=== PATIENT | female | born 1990 | race American Indian/Alaskan Native ===

== ENCOUNTER 2019-10-26 13:45 | Outpatient (CLI) | payer MEDICAID ==
[2019-10-26 14:49] VITALS: BP 117/66
[2019-10-26] MEDS ORDERED: LACTATED RINGERS 1000 ML IV SOLN ONE (14:55)
[2019-10-26] MEDS ORDERED: LACTATED RINGERS 1,000 ML IV ONE (14:55)
[2019-10-26 15:22] LABS: Bilirubin,Urine NEG (Negative); Blood,Urine NEG (Negative); Color,Urine Yellow (Yellow); Mucus,Urine FEW /HPF; Protein,Urine <15 mg/dL mg/dL (Negative); Urobilinogen,Urine < 2.0 mg/dL (<2.0)
== END 2019-10-26 17:19 | disposition home or self-care (01) ==
LOC: TRG 13:45 → APU 13:47 → TRG 17:19
PROVIDERS: ATTEND Obstetrics & Gynecology
DX: O62.9 Abnormality of forces of labor, unspecified (principal); Z3A.37 37 weeks gestation of pregnancy
CPT/HCPCS: 59025; 81001; 96360; J7120

== ENCOUNTER 2019-11-03 20:27 | Inpatient (IN) | payer MEDICAID ==
[2019-11-03] MEDS ORDERED: LACTATED RINGERS 1,000 ML ONE (21:12)
[2019-11-03] MEDS ORDERED: LACTATED RINGERS 1,000 ML IV ONE (21:27)
[2019-11-03 21:50] LABS: Basophils # (Auto) 0.1 K/mm3 (0.0-0.1); Basophils % (Auto) 0.8 % (0.0-1.8); Eosinophils % (Auto) 0.1 % (0.0-4.3); Hemoglobin 9.8 gm/dl (10.1-14.3); Lymphocytes # (Auto) 1.7 K/mm3 (1.2-5.4); Lymphocytes % (Auto) 16.3 % (13.4-35.0); Mean Corpuscular HGB Conc 34 % (30-34); Mean Corpuscular Volume 74 fl (79-97); Monocytes # (Auto) 0.8 K/mm3 (0.0-0.8); Monocytes % (Auto) 7.5 % (0.0-7.3); Platelet Count 270 K/mm3 (140-440); Red Blood Count 3.93 M/mm3 (3.65-5.03); Red Cell Distribution Width 19.2 % (13.2-15.2)
[2019-11-03 22:02] LABS: Bacteria,Urine 1+ /HPF (Negative); Bilirubin,Urine NEG (Negative); Blood,Urine LG (Negative); Color,Urine Yellow (Yellow); Mucus,Urine FEW /HPF; Protein,Urine <15 mg/dL mg/dL (Negative); Urobilinogen,Urine < 2.0 mg/dL (<2.0)
[2019-11-03] MEDS ORDERED: AMPICILLIN/NS 2 GM/100 ML 2 GM/100 ML BAG IV ONE (22:42)
[2019-11-04] MEDS ORDERED: oxyCODONE /ACETAMINOPHEN 5-325MG TAB PO PRN (00:23)
[2019-11-04] MEDS ORDERED: AMPICILLIN/NS 1 GM/50 ML 1 GM/50 ML BAG IV SCH (02:00)
--- NOTE | 2019-11-04 02:23 | Anesthesia Consultation ---
Anesthesia Consult and Med Hx Date of service: 11/04/19 - Airway Anesthetic Teeth Evaluation: Good ROM Head & Neck: Adequate Mental/Hyoid Distance: Adequate Mallampati Class: Class II Intubation Access Assessment: Probably Good - Pulmonary Exam CTA: Yes - Cardiac Exam Cardiac Exam: RRR - Pre-Operative Health Status ASA Pre-Surgery Classification: ASA2 Proposed Anesthetic Plan: Spinal - Pulmonary Hx Asthma: No - Cardiovascular System Hx Hypertension: No - Central Nervous System Hx Seizures: No Hx Psychiatric Problems: No - Endocrine Hx Renal Disease: No Hx Hypothyroidism: No Hx Hyperthyroidism: No - Hematic Hx Anemia: No Hx Sickle Cell Disease: No - Other Systems Hx Alcohol Use: No
--- NOTE | 2019-11-04 02:23 | Anesthesia Day of Surgery ---
Anesthesia Day of Surgery - Day of Surgery Patient Examined: Yes Patient H&P Reviewed: Yes Patient is NPO: Yes
[2019-11-04] MEDS ORDERED: METOCLOPRAMIDE 10 MG/2 ML INJ ONE (02:41)
[2019-11-04] MEDS ORDERED: BICITRA ORAL LIQD 30ML ONE (02:41)
[2019-11-04] MEDS ORDERED: FAMOTIDINE 20 MG/2 ML INJ IV ONE (02:41)
[2019-11-04] MEDS ORDERED: OXYTOCIN 20 UNIT/1000ML DRIP 40,000 MILLIUNITS/2,000 ML BAG IV ONE (02:41)
--- NOTE | 2019-11-04 02:50 | History and Physical Report ---
History of Present Illness Date of examination: 11/04/19 Date of admission: 11/04/2019 Chief complaint: labor at term History of present illness: JARAD 11/16/2019. Previous . Past History Past Surgical History: section - Obstetrical History Expected Date of Delivery: 11/16/19 Actual Gestation: 38 Week(s) 2 Day(s) : 5 Medications and Allergies Allergies Allergy/AdvReac Type Severity Reaction Status Date / Time No Known Allergies Allergy Unverified 09/08/14 02:11 Home Medications Medication Instructions Recorded Confirmed Last Taken Type Ondansetron [Zofran Odt] 4 mg PO Q6H #30 tab.rapdis 09/08/14 Unknown Rx Vit-Fe Fumar-FA [ 1 each PO QDAY #30 tablet 09/08/14 Unknown Rx Vitamin] Active Meds: Active Medications Ampicillin Sodium (Ampicillin/Ns 1 Gm/50 Ml) 1 gm in 50 mls @ 100 mls/hr IV Q4HR BRAD; Protocol Cefazolin Sodium (Ancef/Sterile Water 2 Gm/20 Ml) 2 gm in 20 mls @ 100 mls/hr IV ONCE ONE Stop: 11/04/19 03:11 Oxycodone/Acetaminophen (Percocet 5/325) 2 tab PO Q6H PRN PRN Reason: Pain, Moderate (4-6) Last Admin: 11/04/19 00:44 Dose: 2 tab Documented by: Review of Systems All systems: negative - Vital Signs Vital signs: Vital Signs Pulse BP 94 H 133/76 11/03/19 20:44 11/03/19 20:44 Temp Pulse Resp BP Pulse Ox 98.3 F 86 16 123/77 11/04/19 00:51 11/04/19 00:51 11/04/19 00:51 11/04/19 00:51 - Physical Exam Lungs: Positive: Normal air movement Abdomen: Positive: distention. Negative: tenderness, guarding - Obstetrical FHR: auscultation normal Uterine Contraction Monitor Mode: Palpation Results Result Diagrams: 11/03/19 21:20 Abnormal lab results 11/03/19 11/03/19 Range/Units 21:20 21:20 Hgb 9.8 L (10.1-14.3) gm/dl Hct 29.0 L (30.3-42.9) % MCV 74 L (79-97) fl MCH 25 L (28-32) pg RDW 19.2 H (13.2-15.2) % Millard % (Auto) 7.5 H (0.0-7.3) % Seg Neutrophils % 75.3 H (40.0-70.0) % Seg Neutrophils # 8.0 H (1.8-7.7) K/mm3 Urine WBC (Auto) 32.0 H (0.0-6.0) /HPF All other labs normal. Assessment and Plan - Patient Problems (1) Previous delivery affecting , antepartum Current Visit: Yes Status: Acute (2) Active labor at term Current Visit: Yes Status: Acute Plan to address problem: Informed consent was given by patient for a repeat . vs cesrean discussed.
[2019-11-04] MEDS ORDERED: ceFAZolin/Water 2 GM/20 ML 2 GM/20 ML SYRINGE IV ONE (03:00)
[2019-11-04] MEDS ORDERED: SODIUM CHLORIDE 0.9% IRR 1,000 ML BOTTLE IR ONE (03:18)
[2019-11-04] MEDS ORDERED: PHENYLEPHRINE/NS 1,000 MCG/10 ML SYRINGE (OR USE) IV ONE (03:24)
[2019-11-04] MEDS ORDERED: DEXMEDETOMIDINE 200 MCG/2 ML VIAL IV ONE (03:24)
[2019-11-04] MEDS ORDERED: KETOROLAC 30 MG/1 ML INJ ONE (03:24)
[2019-11-04] MEDS ORDERED: BUPIVACAINE /DEX-WATER 0.75% (2 ML) AMPULE INFILTRATI ONE (03:24)
[2019-11-04] MEDS ORDERED: LANOLIN/ZINC/DIMETHICONE (LANSINOH) 7 GM TP PRN (03:51)
[2019-11-04] MEDS ORDERED: ONDANSETRON 4 MG/2 ML INJ IV PRN (03:51)
[2019-11-04] MEDS ORDERED: ACETAMINOPHEN 325 MG TAB PO PRN (03:51)
[2019-11-04] MEDS ORDERED: WITCH HAZEL/ GLYCERIN PAD TP PRN (03:51)
[2019-11-04] MEDS ORDERED: NALOXONE 0.4 MG/1 ML INJ IV PRN (03:51)
--- NOTE | 2019-11-04 03:56 | Operative Report ---
Operative Report Operative Report: Date of surgery: November 04, 2019 Preoperative diagnoses: Term , previous section, active labor Postoperative diagnoses: The same. Operation: Lower segment transverse delivery Surgeon:Christiane Neff MD Reverser: Manuel Lamas CRNA Anesthesia: Spinal block Estimated blood loss:500 mL Complications: None Findings: There was a live baby girl in vertex within a very thick olive green meconium stained amniotic fluid. weight 7 pounds 2 ounces with Apgars 8/9. The ovaries, fallopian tubes and the uterus were grossly normal. The bowels seen through the Pfannenstiel incision as well as the greater omentum were all palpably and grossly normal. There were no adhesions within the operative field. Procedure in detail: The patient was taken to the operating room and given a spinal block. Patient was placed in the straight supine position and a Boyd catheter was inserted. The patient was prepped in the abdomen. The drapes were placed. A timeout was done. With the go ahead from the administrative assistant receptionist, a Pfannenstiel incision was made. This incision was carried across the subcutaneous layer to the fascia which was also divided transversely. The recti abdominis muscle flaps were stripped from the fascia using a combination of blunt and sharp dissections. The muscles were in the midline to gain access to the anterior parietal peritoneum which was divided after excluding any underlying viscera. The access to the peritoneal cavity was then widened by manual stretching. The bladder blade was applied. The utero vesicle peritoneal flap was divided transversely allowing the bladder to be displaced caudally. The uterine incision was placed in the lower segment transversely. The uterine incision was carried to the decidual layer. The uterine incision was extended on both sides using the bandage scissors. The amniotic sac was ruptured with clear fluid. The head was lifted out of the false maternal pelvis and delivered through the incision using fundal pressure. The airways were bulb suctioned beginning with the mouth. Continuing fundal pressure combined with traction on the mandibular processes of the jaw delivered the rest of the baby. The umbilical cord was double clamped and divided. The baby was carefully transferred to the pediatric team. The placenta was manually removed from the uterine cavity. The uterine cavity was explored and was empty of any placental remnants. The uterine incision was repaired in 2 layers with #1 Vicryl. The surgical line on the uterus was hemostatic. Blood and clots were cleared from the peritoneal cavity. The anterior parietal peritoneum was repaired with #1 Vicryl. The fascia was repaired with #1 Vicryl. The subcutaneous layer was made hemostatic using the Bovie before the skin was closed subcuticularly with 4-0 Vicryl. There were no complications. The estimated blood loss was 500 mL. All sponges and instrument counts were correct. Patient was safely transferred to the recovery room.
[2019-11-04] MEDS ORDERED: OXYTOCIN 20 UNIT/1000ML DRIP 20 UNITS/1,000 ML BAG IV SCH (04:00)
--- NOTE | 2019-11-04 04:11 | Post Anesthesia Evaluation ---
- Post Anesthesia Evaluation Patient Participated: Yes Airway Patent: Yes Stable Respiratory Function: Yes Nausea/Vomiting: No Temp > 96.8F: Yes Pain Manageable: Yes Adequeate Hydration: Yes Anesthesia Complications: No Block Receding Appropriately: Yes
[2019-11-04] MEDS: MORPHINE 4 MG/1 ML INJ IV PRN ×3 (06:55→17:11)
[2019-11-04] MEDS: FERROUS SULFATE 325 MG TAB PO SCH (09:22)
[2019-11-04] MEDS: PRENATAL VIT27-FE FUMARATE-FOLIC ACID VIT TAB PO SCH (09:22)
[2019-11-04] MEDS: KETOROLAC 30 MG/1 ML INJ IV PRN (09:22)
[2019-11-04] MEDS: ceFAZolin/NS 1 GM/50 ML 1 GM/50 ML BAG IV SCH ×2 (11:49→20:12)
[2019-11-04] MEDS ORDERED: SODIUM CHLORIDE 0.9% 1000 ML 1,000 ML ONE (13:47)
[2019-11-04] MEDS: HYDROcodone/ACETAMINOPHEN 5-325 MG TAB PO PRN ×2 (14:14→20:08)
[2019-11-04 15:48] LABS: Hematocrit 28.4 % (30.3-42.9); Hemoglobin 9.4 gm/dl (10.1-14.3)
[2019-11-05] MEDS: KETOROLAC 30 MG/1 ML INJ IV PRN (00:10)
--- NOTE | 2019-11-05 08:00 | Progress Note ---
Assessment and Plan A: POD #1 Asymptomatic Anemia P: Follow Routine PostOp Orders Continue PO FeSO4 Subjective - Subjective Date of service: 11/05/19 Patient reports: appetite normal, voiding normally, pain well controlled, flatus, ambulating normally Ulman: doing well, bottle feeding Objective - Vital Signs Latest vital signs: Vital Signs Temp Pulse Resp BP BP Pulse Ox 11/05/19 00:10 18 11/05/19 00:00 98.6 F 70 16 121/70 11/04/19 20:08 18 11/04/19 19:30 98.6 F 77 16 134/77 11/04/19 17:11 20 11/04/19 15:46 98.4 F 93 H 18 125/72 96 11/04/19 14:14 20 11/04/19 10:44 18 11/04/19 09:22 20 11/04/19 09:04 97.9 F 95 H 18 123/76 98 Intake and Output 11/04/19 11/05/19 11/05/19 22:59 06:59 14:59 Intake Total 780 Output Total 950 700 Balance -170 -700 Intake: Oral 240 Intake, Free Water 540 Output: Urine 950 700 Indwelling Catheter 300 Void 650 700 Other: Total, Intake Amount 120 Total, Output Amount 400 700 # Voids Void 1 1 - Exam Breasts: Present: normal Cardiovascular: Present: Regular rate Lungs: Present: Clear to auscultation, Normal air movement Abdomen: Present: normal appearance, soft, normal bowel sounds Uterus: Present: normal, firm, fundal height below umbilicus Extremities: Present: normal Incision: Present: dry, dressed - Labs Labs: Abnormal lab results 11/04/19 Range/Units 15:10 Hgb 9.4 L (10.1-14.3) gm/dl Hct 28.4 L (30.3-42.9) %
[2019-11-05] MEDS: HYDROcodone/ACETAMINOPHEN 5-325 MG TAB PO PRN ×3 (08:05→23:40)
[2019-11-05] MEDS: IBUPROFEN 800 MG TAB PO PRN ×2 (10:38→21:03)
[2019-11-05] MEDS: FERROUS SULFATE 325 MG TAB PO SCH (10:38)
[2019-11-05] MEDS: PRENATAL VIT27-FE FUMARATE-FOLIC ACID VIT TAB PO SCH (10:38)
[2019-11-05] MEDS ORDERED: BENZOCAINE/MENTHOL 20/0.5% TOP SPRAY 56 GM TP PRN (22:10)
[2019-11-06 09:03] VITALS: BP 118/79
[2019-11-06] MEDS: HYDROcodone/ACETAMINOPHEN 5-325 MG TAB PO PRN (09:29)
[2019-11-06] MEDS: FERROUS SULFATE 325 MG TAB PO SCH (09:29)
[2019-11-06] MEDS: PRENATAL VIT27-FE FUMARATE-FOLIC ACID VIT TAB PO SCH (09:29)
--- NOTE | 2019-11-06 10:47 | Discharge Summary ---
Providers - Providers Date of Admission: 11/04/19 03:45 Date of discharge: 11/06/19 (1200) Attending physician: SHELLEY VALLADARES MD Primary care physician: SHELLEY VALLADARES MD Hospitalization Reason for admission: active labor Delivery: Procedure: repeat low transverse Episiotomy: none Laceration: none Incision: dry, intact (no drainage or bleeding noted) Other procedures: none complications: none Discharge diagnosis: IUP at term delivered baby: female Hospital course: See admission H & P; OB operative note and PP progress notes Condition at discharge: Stable Disposition: DC-01 TO HOME OR SELFCARE - Discharge Diagnoses (1) Status post repeat low transverse section Status: Acute (2) Anemia Status: Acute Qualifiers: Anemia type: iron deficiency Plan - Discharge Medications Prescriptions: Ferrous Sulfate [Feosol 325 MG tab] 325 mg PO QDAY 30 Days #30 tablet Ibuprofen [Motrin 800 MG tab] 800 mg PO Q6H PRN 14 Days #56 tablet PRN Reason: Pain, Mild (1-3) HYDROcodone/APAP 5-325 [[place] 5/325] 1 - 2 each PO Q6HR PRN #30 tablet PRN Reason: Pain - Provider Discharge Summary Activity: routine, no sex for 6 weeks, no heavy lifting 4 weeks, no strenuous exercise Diet: other (Iron rich diet) Instructions: routine Additional instructions: [] Smoking cessation referral if applicable(refer to patient education folder for contact #) [] Refer to [facility] Booklet Call your doctor immediately for: * Fever > 100.5 * Heavy vaginal bleeding ( >1 pad per hour) * Severe persistent headache * Shortness of breath * Reddened, hot, painful area to leg or breast * Drainage or odor from incision. * Keep incision clean and dry at all times and follow doctor's instructions regarding bathing/showering - Follow up plan Follow up: SHELLEY VALLADARES MD [Primary Care Provider] - 7 Days
[2019-11-06] MEDS: IBUPROFEN 800 MG TAB PO PRN (13:03)
== END 2019-11-06 15:30 | disposition home or self-care (01) | DRG 766 ==
LOC: TRG 20:27 → APU 20:30 → LD 11-04 00:45 → TRG 11-04 03:43 → LD 11-04 03:45 → OB 11-04 05:58
PROVIDERS: ADMIT Obstetrics & Gynecology; ATTEND Obstetrics & Gynecology
PROC: 10D00Z1 Extraction of Products of Conception, Low, Open Approach (ICD-10-PCS; principal; 2019-11-04)
DX: O34.211 Maternal care for low transverse scar from previous cesarean delivery (principal); Z3A.38 38 weeks gestation of pregnancy; Z37.0 Single live birth; D50.9 Iron deficiency anemia, unspecified; O99.02 Anemia complicating childbirth
CPT/HCPCS: 36415; 59025; 81001; 85014; 85018; 85025; 86592; 86850; 86900; 86901; 87086; 88307; 96360; G0378; J0290; J0690; J1885; J2270; J2370; J2590; J2765; J3490; J7030; J7120